=== PATIENT | female | born 1985 | race Hispanic/Latino ===

== ENCOUNTER 2017-10-22 16:55 | Emergency (ER) | payer MEDICAID ==
[2017-10-22] MEDS ORDERED: diphenhydrAMINE 50 MG/ML VIAL ONE (17:35)
[2017-10-22] MEDS ORDERED: Metoclopramide HCl 10 MG/2 ML VIAL ONE (17:35)
[2017-10-22 17:47] LABS: #Eosinphils 0.1 thou/uL (0.0-0.7); #Lymphocytes 1.6 thou/uL (1.20-3.40); #Monocytes 0.4 thou/uL (0.11-0.59); #Neutrophils 4.7 thou/uL (1.40-6.50); %Basophils 0.5 % (0.0-1.0); %Eosinophils 1.3 % (0.0-10.0); %Lymphocytes 23.7 % (21.0-51.0); %Monocytes 5.9 % (0.0-10.0); %Neutrophils 68.5 % (42.0-75.0); Mean Corpuscular HGB CONC 34.2 g/dL (32.0-36.0); Mean Corpuscular Hemoglobin 31.2 pg (27.0-31.0); Mean Corpuscular Volume 91.1 fl (81.0-99.0); Mean Platelet Volume 9.4 fL (7.4-10.4); Platelet Count 121 thou/uL (130-400); RBC Distribution Width 12.1 % (11.5-14.5); Red Blood Cell (RBC) Count 4.15 mill/uL (4.20-5.40); White Blood Cell (WBC) Count 6.9 thou/uL (4.8-10.8)
[2017-10-22 18:11] LABS: ALT (SGPT) 12 U/L (8-55); AST (SGOT) 15 U/L (5-34); Albumin 3.7 g/dL (3.5-5.0); Alkaline Phosphatase 58 U/L (40-150); Anion Gap 12 mmol/L (10-20); BUN (Urea Nitrogen) 6 mg/dL (7.0-18.7); Bilirubin, Total 0.4 mg/dL (0.2-1.2); Calc. Creatinine Clearance 0 mL/min (70-130); Calcium 8.9 mg/dL (7.8-10.44); Carbon Dioxide 21 mmol/L (22-29); Chloride 107 mmol/L (98-107); Estimated GFR-MDRD Greater than 90; Globulin 2.6 g/dL (2.4-3.5); Glucose 77 mg/dL (70-105); Potassium 3.9 mmol/L (3.5-5.1); Protein, Total 6.3 g/dL (6.0-8.3); Sodium 136 mmol/L (136-145)
[2017-10-22 18:23] LABS: Bilirubin Negative (Negative); Blood, Urine Negative (Negative); Clarity CLOUDY (Clear); Glucose, Urine (Dipstick) Negative (Negative); Leukocyte Large (Negative); Nitrite Negative (Negative); Protein, Urine (Dipstick) Negative (Neg-Trace); Specific Gravity, Urine 1.014 (1.002-1.036)
[2017-10-22 18:29] LABS: Bacteria/HPF Rare-Few HPF (None Seen); Hyaline Casts/LPF 0-3 HYALINE CAST LPF (0-3 Hyaline); Pathc Cast-AUWi Flag 0.29 (0-2.49); WBC/HPF 21-50 HPF (0-3)
--- NOTE | 2017-10-22 18:48 | ULT ---
OB ULTRASOUND: 10/22/17 HISTORY: Abdominal and pelvic pain. A viable single intrauterine identified. Gestational age by ultrasound is 13 weeks, 4 days . Biometry measurements are consistent. heart rate: 155. Placenta: Anterior. Amniotic fluid: Within normal range. Cord insertion: Identified. Intracranial contents appear unremarkable for this age of gestation. Maternal ovaries identified and appear unremarkable. No abnormality identified. IMPRESSION: 13 week, 4 day gestation by ultrasound. No abnormality identified. POS: [facility]
== END 2017-10-22 19:03 | disposition home or self-care (01) ==
LOC: ERS 16:55
DX: O23.41 Unspecified infection of urinary tract in pregnancy, first trimester (principal); Z3A.12 12 weeks gestation of pregnancy
CPT/HCPCS: 36415; 76815; 80053; 81003; 81015; 85025; 86850; 86900; 86901; 87086; 96361; 96374; 96375; J1200; J2765

== ENCOUNTER 2017-12-25 18:22 | Inpatient (IN) | payer MEDICAID, OTHER, SELFPAY ==
[2017-12-25] MEDS ORDERED: Lactated Ringer's 1,000 ML IV SCH (19:15)
[2017-12-25 19:17] VITALS: BMI 22.6
[2017-12-25 19:25] LABS: Bilirubin Negative (Negative); Blood, Urine Negative (Negative); Clarity CLEAR (Clear); Glucose, Urine (Dipstick) Negative (Negative); Leukocyte Negative (Negative); Nitrite Negative (Negative); Protein, Urine (Dipstick) Negative (Neg-Trace); Specific Gravity, Urine 1.007 (1.002-1.036); pH, Urine 8.5 (5.0-9.0)
--- NOTE | 2017-12-25 19:42 | HP ---
DATE OF ADMISSION: 12/25/2017 TIME OF EVALUATION: 1852 hours to 1905 hours. LOCATION: Labor and Delivery. This is a patient of Dr. Oliveira. REASON FOR EVALUATION: A 23 weeks and 0 days with acute pelvic pain. HISTORY OF PRESENT ILLNESS: In brief, this is a 32-year-old female 3, para 2 with n o history of labor or cervical incompetence who presents at 23 weeks and 0 days based on a du e date that she gives on 04/23/2018. The patient has a history of 2 prior vaginal births at term. S he denies recent trauma or recent intercourse. She denies any vaginal bleeding or leakage of fluid. She states that a few hours ago she started to have acute pelvic pain located over the bladder. She states that this is kind of a pressure and dull pain. She denies headaches, GI or symptoms. REVIEW OF SYSTEMS: Complete review of systems was completed and is otherwise negative unless specifi ed in the HPI. PAST MEDICAL HISTORY: Negative. PAST SURGICAL HISTORY: None. ALLERGIES: None. OB HISTORY: Significant for 2 prior vaginal births. PHYSICAL EXAMINATION: VITAL SIGNS: Temperature is 98.8, blood pressure is 92/60, pulse is 82, respirations are 24. Grossl y, she looks uncomfortable, but is in no acute distress. ABDOMEN: Soft and uterine fundus is nontender. it appears size compatible with dates. I performed a vaginal examination and I did not find any vaginal bleeding or evidence of leakage of membranes. I performed a digital cervical examination and this was later confirmed by the patient's RN immediatel y following, and found the cervix to be fingertip/75% effaced/about 0 station. I do not suspect rupt ured membranes. On monitoring, heart tones are in the 160s to 170s without significant decelerations. Th ere are no contractions on tocodynamometer. ASSESSMENT: This is a at 23 weeks and 0 days with acute pelvic pain with no evidence of advanc ed cervical dilation or ruptured membranes. Clinically, she has no risk factors for abruption and I do not suspect an abruption is occurring. PLAN: 1. I have ordered a stat cath urine for analysis. 2. I have ordered a CMP and a CBC. 3. I have ordered a stat obstetrical ultrasound for gestational weight and to check the cervical praneeth gth. 4. I did not order an SFN as she is under 24 weeks. 5. Source of pelvic pain is unclear at this time, but we are beginning the investigation.
[2017-12-25 19:54] LABS: #Monocytes 0.8 thou/uL (0.11-0.59); #Neutrophils 6.7 thou/uL (1.40-6.50); %Basophils 0.1 % (0.0-1.0); %Eosinophils 0.5 % (0.0-10.0); %Lymphocytes 20.6 % (21.0-51.0); %Monocytes 8.3 % (0.0-10.0); %Neutrophils 70.6 % (42.0-75.0); Hemoglobin 10.3 g/dL (12.0-16.0); Mean Corpuscular HGB CONC 36.4 g/dL (32.0-36.0); Mean Corpuscular Hemoglobin 33.4 pg (27.0-31.0); Mean Corpuscular Volume 91.8 fL (78.0-98.0); Mean Platelet Volume 7.6 fL (7.4-10.4); Platelet Count 163 thou/uL (130-400); RBC Distribution Width 12.4 % (11.5-14.5); Red Blood Cell (RBC) Count 3.08 mill/uL (4.20-5.40); White Blood Cell (WBC) Count 9.5 thou/uL (4.8-10.8)
[2017-12-25 20:14] LABS: ALT (SGPT) 19 U/L (8-55); AST (SGOT) 14 U/L (5-34); Alkaline Phosphatase 91 U/L (40-150); Anion Gap 11 mmol/L (10-20); BUN (Urea Nitrogen) 6 mg/dL (7.0-18.7); Bilirubin, Total 0.6 mg/dL (0.2-1.2); Calc. Creatinine Clearance 125 mL/min (70-130); Calcium 8.2 mg/dL (7.8-10.44); Carbon Dioxide 19 mmol/L (22-29); Chloride 105 mmol/L (98-107); Estimated GFR-MDRD Greater than 90; Globulin 2.6 g/dL (2.4-3.5); Glucose 89 mg/dL (70-105); Potassium 3.6 mmol/L (3.5-5.1); Protein, Total 5.6 g/dL (6.0-8.3); Sodium 131 mmol/L (136-145)
[2017-12-25] MEDS ORDERED: Acetaminophen 500 MG TAB PO PRN (20:47)
--- NOTE | 2017-12-25 20:53 | PDOC.EVN ---
Event Note - Event Note Event Note: Follow up: I was present for bedside sono by tech...s=d, looks like a posterior marginal previa. Good HR. No cervical shortening on sono with CX arounf 3cm in length. Temp now 101.5. Unsure etiology. I have ordered blood and urine cultures for now. We will kwwp in L&D for now. This might be early Intra-amniotic infection...unsure etiology. As cervical length is normal and as less than 24 weeks...I will hold off on steroids for now. Report given to Tee, who she sees in clinic..she has requested we manage the care for now.
[2017-12-25] MEDS: Lactated Ringer's 1,000 ML IV SCH (21:00)
--- NOTE | 2017-12-25 21:01 | ULT ---
OB ULTRASOUND: 12/25/17 COMPARISON: 10/22/17. INDICATION: Low abdominal pain. FINDINGS: there is a live intrauterine gestation which by ultrasound imaging corresponds to a 22 week, 1 day ge station. Amniotic fluid volume is subjectively normal. cardiac activity documented at 171 beats per minute. The fetus in a breech lie. Placenta is located posteriorly and is low lying although beard s not cover a portion of the internal os compatible with a marginal previa. SHARON is documented at 14.3 cm. Estimated weight is 513 grams. Stated clinical gestational age is 23 weeks, 0 days. Cervic al length is documented at 3.4 cm. IMPRESSION: Live intrauterine gestation as discussed above. Evidence of marginal previa. Recommend continued imaging followup. Cervical length of 3.4 cm. Findings made available to the patient's career technical counselor, Edinson Loyd, at the time of the exam. Code CR POS: [facility]
--- NOTE | 2017-12-25 21:08 | PDOC.EVN ---
Event Note - Event Note Event Note: Per Pharmacy, no eryhtro IV..change to Zmax 500mg IV QD
[2017-12-25] MEDS ORDERED: Azithromycin 500 MG in Sodium Chloride 0.9% 250 ML 250 ML IVPB SCH (21:30)
[2017-12-25] MEDS: Ampicillin 1 GM in Sodium Chloride 0.9% 100 ML IVPB SCH (22:03)
--- NOTE | 2017-12-25 22:55 | PDOC.EVN ---
Event Note - Event Note Event Note: Patient still with some pelvic discomfort...unsure etiology. We will keep in L& D overnight. Still no VB or ROM
[2017-12-25] MEDS ORDERED: Erythromycin 500 MG in Sodium Chloride 0.9% 250 ML 250 ML IVPB SCH (23:59)
[2017-12-26] MEDS: Ampicillin 1 GM in Sodium Chloride 0.9% 100 ML IVPB SCH ×3 (05:03→17:48)
[2017-12-26] MEDS ORDERED: Butorphanol Tartrate 1 MG/ML VIAL SLOW IVP PRN (05:07)
[2017-12-26] MEDS ORDERED: Promethazine HCl 25 MG/ML VIAL IM/IV PRN (05:07)
--- NOTE | 2017-12-26 05:10 | PDOC.EVN ---
Event Note - Event Note Event Note: @0505: in L&D, patient states continued lower pelvic pressure, no VB, no LOF. I will recheck cervical length sono for any cervical changes. Sono ordered stat.
[2017-12-26] MEDS ORDERED: Butorphanol Tartrate 1 MG/ML VIAL SLOW IVP SCH (05:30)
--- NOTE | 2017-12-26 05:40 | PDOC.EVN ---
Event Note - Event Note Event Note: Repeat sono for cervical length by verbal rport ranges from 2.5 to 3.2 based on angle used. Final read pending. Although still generally normal, I have ordered celestone to begin.
[2017-12-26] MEDS: Lactated Ringer's 1,000 ML IV SCH ×3 (06:26→21:03)
[2017-12-26] MEDS: Betamet Acet/Betamet Na Ph 30 MG/5 ML VIAL IM SCH (07:01)
--- NOTE | 2017-12-26 07:22 | PDOC.EVN ---
Event Note - Event Note Event Note: @0715: L&D Update: Maternal Transfer Request Due to increased pelvic pressure, I rechecked her cervix: CX is /0...as now 1cm and uncomfortable, I have initiated maternal transfer request due to EGA of 23 weeks 1 day. I ordered Indocin 100mg WI X 1 mow. I had not initiated transport (earlier) as I was not yet sure that IAI was the sure diagnosis; I am now sure IAI is the etiology.
[2017-12-26] MEDS ORDERED: Indomethacin 50 MG SUPP PR SCH (07:30)
[2017-12-26] MEDS ORDERED: Bicitra 30 ML UDCUP ONE (07:48)
[2017-12-26] MEDS ORDERED: CEFAZOLIN/Water 2 GM/20 ML SYRINGE ONE (07:48)
[2017-12-26] MEDS ORDERED: Midazolam HCl 2 mg/2 ml Vial ONE (08:09)
[2017-12-26] MEDS ORDERED: Fentanyl 250 MCG/5 ML VIAL ONE (08:09)
[2017-12-26] MEDS ORDERED: Carboprost 250 MCG/ML AMP ONE (08:11)
--- NOTE | 2017-12-26 08:12 | PRG ---
DATE OF SERVICE: 12/26/2017 TIME: 0755 LOCATION: Labor and Delivery PREOPERATIVE NOTE Preop Diagnosis: Chorio, 23 week 1 day EGA, Breech, labor at 3cm In brief at approximately 7:45 this morning while I was on phone with the transfer center requesting maternal transport for resuscitative anticipated needs, I was told the patient had a prolonged deceleration in the low 100s for about 3-4 minutes, I evaluated the patient at bedside and performed a vaginal examination. I did not find any gross evidence of bleeding , but she was now dilated to 3 cm with a bag of water, forebag which was intact. As she is now having progressive cervical dilation (3 cm) I have elected to proceed with a primary urgent section as the baby is breech. Dr. Cottrell and myself at bedside in LDR 6 briefly discussed with her the limits of viability and the potential long-term complications of a 23-week . Complications can include cerebral injury, hearing and vision difficulty, and inability to ventilate the lungs at 23 weeks. In short, due to progressive dilation and active laboring at 23 weeks and 1 day, we will proceed with an urgent primary section. This will likely be a classical due to the gestational age. One dose of steroids has been given approximately 2 hours ago. Once again, as I previously documented, while I suspected intra- amniotic infection yesterday, I was not completely sure of the diagnosis and I was awaiting further lab tests to confirm. Now the diagnosis is certain that her presenting fever was intra-amniotic infection, we will proceed with a primary classical for 23-weeks and 1 day. Again, limits of viability have been discussed with her and if necessary, if the child is stabilized after delivery, we will plan on transport. NICU here and ready. Anesthesia here. TOÑITOD
[2017-12-26] MEDS ORDERED: Clindamycin/D5W 900 mg/50 ml Premix Bag ONE (08:17)
[2017-12-26 08:30] LABS: Actual Bicarbonate (HCO3a) 19.6 mEq/L (22-28); Analyzer IN Cardio OR; Base Excess (BEa) -6.7 mEq/L (-2.0 to +3.0)
[2017-12-26] MEDS ORDERED: Ondansetron HCl/PF 4 MG/2 ML Vial ONE (08:31)
[2017-12-26] MEDS ORDERED: Oxytocin 10 UNITS/ML VIAL ONE (08:31)
[2017-12-26] MEDS ORDERED: diphenhydrAMINE 25 MG CAP PO PRN (08:49)
[2017-12-26] MEDS ORDERED: diphenhydrAMINE 50 MG/ML VIAL IM PRN (08:49)
[2017-12-26] MEDS ORDERED: Zolpidem Tartrate 5 MG TAB PO PRN (08:49)
[2017-12-26] MEDS ORDERED: Meperidine HCl/PF 25 MG/ML VIAL SLOW IVP PRN (08:49)
[2017-12-26] MEDS ORDERED: Naloxone HCl 0.4 mg/ml Vial IV PRN (08:49)
[2017-12-26] MEDS ORDERED: Promethazine HCl 25 MG/ML VIAL IM PRN (08:49)
[2017-12-26] MEDS ORDERED: diphenhydrAMINE 50 MG/ML VIAL IVP PRN (08:49)
[2017-12-26] MEDS ORDERED: Ondansetron HCl/PF 4 MG/2 ML Vial IVP PRN ×2 (08:49)
[2017-12-26] MEDS ORDERED: HYDROmorphone 2 MG/ML VIAL SLOW IVP PRN (08:49)
[2017-12-26] MEDS ORDERED: fentaNYL Citrate/PF 2,000 MCG in Sodium Chloride 0.9% 60 ML IV PRN (08:49)
[2017-12-26] MEDS ORDERED: Ketorolac Tromethamine 30 MG/ML VIAL IVP SCH (09:00)
[2017-12-26] MEDS ORDERED: Communication Order-Pharmacy FS SCH (09:00)
[2017-12-26 09:02] LABS: Syphilis Antibody Nonreactive (Nonreactive); Syphilis Antibody Index 0.03 S/CO (<1.00 Non-Reactive)
--- NOTE | 2017-12-26 09:02 | OP ---
DATE OF PROCEDURE: 12/26/2017 PREOPERATIVE DIAGNOSES: 1. Twenty-three week gestation and 1 day. 2. Chorioamnionitis. 3. Cervical dilation at 3 cm. 4. Breech presentation. POSTOPERATIVE DIAGNOSES: 1. Twenty-three week gestation and 1 day. 2. Chorioamnionitis. 3. Cervical dilation at 3 cm. 4. Breech presentation. 5. Status post classical section. PROCEDURE PERFORMED: Classical section via Pfannenstiel skin incision. SURGEON: 1. Dr. Loyd (for delivery). 2. Dr. Luke Thayer. WALLPAPER REMOVER STEAM: Dr. Bea Barth ([facility]). ANESTHESIA: General. ANTIBIOTICS: Ampicillin and Zithromax given intrapartum, clindamycin 900 mg ordered intraoperatively . FINDINGS: 1. No intra-abdominal pelvic adhesions. 2. Slightly bloody fluid noted on rupture of membranes. 3. Baby delivered breech without complication. 4. Classical made without complication. Pathology is the placenta, which will be sent for study as well as bacteriological cultures from the placental surface. 5. Umbilical arterial gas was sent with the gas being 7.2 with a base excess of -6 (normal). INDICATION: This is a patient that was being treated for suspected intra-amniotic infection who prog ressed to active cervical dilation to 3 cm, with a breech presentation. After informed consent, she was taken to the OR for an urgent primary classical . TECHNIQUE: The patient was taken to the Labor and Delivery operating room where the abdomen was prep ped and draped in the usual fashion. A Pfannenstiel skin incision was made with a scalpel and Bovie cautery was used to dissect the subcutaneous tissue down to the level of the fascia. Fascia was ente red in a transverse fashion without complication. Rectus muscles were off the fascia both superiorly and inferiorly in the midline without complication. An Jay O ring retractor was placed into the abdomen for retraction after entry into the peritoneal cavity was done bluntly. A classica l uterine incision was made as there was no well-defined lower uterine segment. Amniotic sac was int act and at the time of manual rupture, baby was extruded from the cavity without complication. The c ord was clamped, transected, and the baby was handed to NICU team immediately. Please see the neonat al resuscitation record per Neonatology. After the baby was delivered, the second surgeon, Dr. Dinah valadez assisted Dr. Barth with uterine hysterotomy repair. This was done in 3 layers using #1 Monocryl. The third and final layer was a serosal closure for hemostasis. Once again, I was the delivering maravilla rgeon with Dr. Thayer, next to me with Dr. Barth assisting, after the baby was delivered Dr. Thayer assisted with t he uterine hysterotomy repair as I scrubbed out to witness the resuscitation, which apparent ly was successful. For skin closure, IV fluids and urine output, please turn to the operative dictat ion or the addendum to this dictation by Dr. Barth who actually finished the surgical procedure. Po stoperatively, we will continue the patient on antibiotics for now confirmed metritis. The baby will likely be transferred and I will give this information to the patient's as well.
[2017-12-26 09:03] LABS: HBSAg Index 0.21 S/CO (0-0.99); HIV (1/2) Antibody/Antigen Non-Reactive (NonReactive); HIV 1/2 INDEX 0.08 S/CO (<1.00); Hep B Surf Ag Non-Reactive S/CO (NonReactive)
--- NOTE | 2017-12-26 09:13 | ULT ---
ULTRASOUND OBSTETRICAL LIMITED: Date: 12-26-17 Time: 5:24 a.m. History: 32-year-old female in second trimester with pelvic pain. Technique: Only three images are submitted, all sagittal images of the maternal cervix. FINDINGS: The cervix is closed and measures 3 cm in length. IMPRESSION: The cervix is not effaced. POS: [facility]
[2017-12-26] MEDS ORDERED: Adacel (T-DAP) 0.5 ML VIAL IM ONE (09:26)
[2017-12-26] MEDS ORDERED: HYDROcodone/Acetaminophen 5/325 mg Tablet PO PRN (09:26)
--- NOTE | 2017-12-26 09:34 | PDOC.EVN ---
Event Note - Event Note Event Note: Arrived at shift change to assist Drs. Loyd and Tab with classical C/S at 23 + weeks for distress, labor, and chorioamnionitis. Dr. Barth to dictate. To floor on triple antibiotic coverage.
[2017-12-26] MEDS ORDERED: Gentamicin Sulfate 120 MG in Premix Bag 1 BAG IVPB SCH (10:00)
[2017-12-26] MEDS: Prenatal Vitamin 1 TAB PO SCH (12:44)
[2017-12-26] MEDS: Ibuprofen 800 MG TAB PO SCH ×2 (14:10→21:02)
[2017-12-26] MEDS: Clindamycin/D5W 900 MG in Premix Bag 1 BAG IVPB SCH ×2 (14:15→21:01)
--- NOTE | 2017-12-26 19:31 | PDOC.PP ---
Post Progress Note Post Day #: 0 Subjective: Feeling much improved. She is tolerating PO and her pain is well-controlled. She is inquiring about baby and is in overall hopeful spirits. She has breastpump at the bedside and is working on pumping regularly. PO intake tolerated: yes Flatus: no Ambulation: no Vital Signs (12 hours) Temp Pulse Resp BP Pulse Ox 12/26/17 17:18 98.2 F 69 20 90/53 L 12/26/17 16:00 98.2 F 70 18 12/26/17 15:08 98.2 F 70 18 95 12/26/17 14:00 98.2 F 70 18 95/54 L 95 12/26/17 12:40 97.8 F 67 18 90/51 L 95 Weight Weight 58.06 kg - Physical Examination General: NAD Respiratory: non-labored breathing Abdominal: no distention, appropriately TTP Fundus firm & at: umbilicus Extremities: negative homans (B) Skin: no rash (bandage in place, clean and dry) Neurological: no gross focal deficits Psychiatric: A&Ox3, normal affect Result Diagrams: 12/25/17 19:46 12/25/17 19:46 Additional Labs: Post Labs Blood Type A POSITIVE 12/26/17 08:10 Hep Bs Antigen Non-Reactive S/CO (NonReactive) 12/26/17 08:10 (1) History of classical section Code(s): Z98.891 - HISTORY OF UTERINE SCAR FROM PREVIOUS SURGERY Status: Acute (2) S/P emergency section Code(s): Z98.891 - HISTORY OF UTERINE SCAR FROM PREVIOUS SURGERY Status: Acute - Assessment/Plan 32 yo now P2133 POD #0 from primary classical section via pfannenstiel incision 1. POD #0 - Tolerating PO and pain well-controlled - All questions answered - Discussed implications of classical uterine incision - Encouraged using breast pump - Fentanyl AMMUNITION AND EXPLOSIVES HANDLER at this time for pain control per anesthesia 2. Chorioamnionitis, now - Continue ampicillin, gentamicin and clindamycin - BCx, UCx and placental culture pending - Monitor VS 3. hemorrhage - Asymptomatic and minimal blood loss post-operatively - Will check AM H&H unless symptomatic prior - Continue PNV and iron Continue care and antibiotics <Bea Barth - Last Filed: 12/26/17 19:36> Vital Signs (12 hours) Temp Pulse Resp BP 12/27/17 04:30 98.1 F 84 18 12/27/17 04:00 98.3 F 75 18 89/50 L 12/27/17 00:00 98.1 F 84 18 90/45 L Weight Weight 58.06 kg Result Diagrams: 12/27/17 05:05 12/25/17 19:46 Additional Labs: Post Labs Blood Type A POSITIVE 12/26/17 08:10 Hep Bs Antigen Non-Reactive S/CO (NonReactive) 12/26/17 08:10 <Mason Thayer - Last Filed: 12/27/17 08:37> Attending Addendum - Attending Addendum Date/Time: 12/27/17 0836 I personally evaluated the patient and discussed the management with Dr. Barth. I agree with the History, Examination, Assessment and Plan. <Mason Thayer - Last Filed: 12/27/17 08:37>
[2017-12-26] MEDS: Ferrous Sulfate 325 MG TAB PO SCH (21:03)
--- NOTE | 2017-12-26 23:56 | DN-2 ---
DATE OF PROCEDURE: 12/26/2017 PRIMARY ATTENDING SURGEON: Edinson Loyd M.D. RESIDENT SURGEON: Bea Barth M.D. PACK OPERATOR SURGEON: Luke Thayer M.D. PROCEDURE: Emergent primary classical section via Pfannenstiel skin incision. PREOPERATIVE DIAGNOSES: 1. 23.1 week gestation. 2. Chorioamnionitis. 3. Cervical dilation, 3 cm. 4. Breech presentation. 5. Recurrent late decelerations on heart tracing. POSTOPERATIVE DIAGNOSES: 1. 23.1 week gestation. 2. Chorioamnionitis. 3. Cervical dilation at 3 cm. 4. Breech presentation. 5. Recurrent late decelerations on heart tracing. 6. Status post classical section. 7. hemorrhage. ANESTHESIA: General. INDICATIONS: The patient is a 32-year-old -0-3-2 at 23.1 weeks gestation who presented yesterday with suspected intra-amniotic infection and progressed to 3 cm cervical dilation with breech presentation. After benefits and alternatives were discussed with the patient, she gave informed consent. Preoperative antibiotics included azithromycin, clindamycin and ampicillin. The patient was taken to the operating room, placed in supine position with left tilt, prepped and draped in the usual sterile fashion. General anesthesia was then initiated. A Pfannenstiel incision was made with the scalpel and carried down through the level of the fascia which was nicked with Bovie cautery. Subcutaneous tissue and fascia extended bluntly. The inferior and superior edges of the cut fascial edges were elevated with Reinaldo clamps and underlying rectus muscles were sharply and bluntly dissected free. The recti were divided digitally and retracted manually. The peritoneum was entered bluntly and retracted manually. An Jay O was placed. A classical incision was made as there was no development of the lower uterine segment. The amniotic sac was intact at the time of entry, ruptured when presentation was confirmed and the baby was removed from the cavity without complication. The fluid was noted to have a green/brown tinge. The cord was promptly clamped, cut and the baby was handed to NICU team immediately. A cord gas was collected. Cord blood was collected. The placenta was manually extracted in the Black[place] presentation, found to be intact and sent with the infant for further evaluation. The uterus was elevated out of the abdomen and the endometrium was curetted with a dry lap. The uterus was closed in four layers of #1 Monocryl suture. The initial two layers were in a running locking fashion. The third layer was an imbricating serosal layer. The fourth a single interrupted layer on the serosa for additional hemostasis. The abdomen was irrigated and suctioned free of clots. The uterus was internalized and hysterotomy was again noted to be hemostatic. Seprafilm was applied to the hysterotomy repair. The peritoneum was closed with 0-Chromic suture in a running fashion. The fascia was closed with running non-locking 0-PDS suture. The subcutaneous tissue was irrigated and there were no bleeders. The skin was approximated with 4-0 Monocryl suture, Dermabond and steri strips and pressure dressing was placed. All counts were correct. The patient tolerated the procedure very well and was taken to the recovery room in stable condition. QUANTITATIVE BLOOD LOSS: 1240 mL URINE OUTPUT: 300 mL of light yellow urine. COMPLICATIONS: hemorrhage. SPECIMENS: Cord blood sent to lab for blood type A and cord gas sent showing a pH of 7.28, pCO2 of 42.4, bicarbonate 19.6 and base excess of -6.7 FINDINGS: female infant who weighed 720 grams. Placenta sent with infant for further laboratory evaluation. DRAINS: Rushing to gravity draining clear urine. MTDD
[2017-12-27] MEDS: Ampicillin 1 GM in Sodium Chloride 0.9% 100 ML IVPB SCH ×4 (00:31→18:29)
[2017-12-27] MEDS: Clindamycin/D5W 900 MG in Premix Bag 1 BAG IVPB SCH ×3 (05:16→21:25)
[2017-12-27] MEDS: Ibuprofen 800 MG TAB PO SCH ×3 (05:16→21:25)
[2017-12-27 05:33] LABS: Hemoglobin 8.6 g/dL (12.0-16.0); Mean Corpuscular HGB CONC 34.5 g/dL (32.0-36.0); Mean Corpuscular Hemoglobin 32.2 pg (27.0-31.0); Mean Corpuscular Volume 93.5 fL (78.0-98.0); Mean Platelet Volume 7.8 fL (7.4-10.4); Platelet Count 148 thou/uL (130-400); RBC Distribution Width 12.7 % (11.5-14.5); Red Blood Cell (RBC) Count 2.68 mill/uL (4.20-5.40)
--- NOTE | 2017-12-27 07:01 | PDOC.PP ---
Post Progress Note Post Day #: 1 Subjective: Feeling well this morning. She is tolerating PO and her pain is well- controlled. Rushing was removed this morning and she felt ok getting up. PO intake tolerated: yes Flatus: no Ambulation: yes Vital Signs (12 hours) Temp Pulse Resp BP 12/27/17 00:00 98.1 F 84 18 90/45 L 12/26/17 20:00 98.1 F 84 18 91/47 L Weight Weight 58.06 kg - Physical Examination General: NAD Cardiovascular: no m/r/g, RRR Respiratory: clear to auscultation bilaterally, non-labored breathing Abdominal: + bowel sounds, no distention, appropriately TTP Fundus firm & at: below umbilicus Extremities: negative homans (B) Skin: CS incision dry & intact, no rash Neurological: no gross focal deficits Psychiatric: A&Ox3, normal affect Result Diagrams: 12/27/17 05:05 12/25/17 19:46 Additional Labs: Post Labs Blood Type A POSITIVE 12/26/17 08:10 Hep Bs Antigen Non-Reactive S/CO (NonReactive) 12/26/17 08:10 (1) History of classical section Code(s): Z98.891 - HISTORY OF UTERINE SCAR FROM PREVIOUS SURGERY Status: Acute (2) S/P emergency section Code(s): Z98.891 - HISTORY OF UTERINE SCAR FROM PREVIOUS SURGERY Status: Acute - Assessment/Plan 32 yo now P2133 POD #1 from primary classical section via Pfannenstiel incision for chorioamnionitis, non-reassuring status and breech presentation 1. POD #1 - Tolerating PO and pain well-controlled - All questions answered - Discussed implications of classical uterine incision - Encouraged using breast pump - Fentanyl HUMAN RESOURCES DISTRICT MANAGER at this time for pain control per anesthesia - H&H stable but will start iron and continue PNV 2. Sepsis 2/2 Chorioamnionitis, now - Continue ampicillin, gentamicin and clindamycin - BCx, UCx and placental culture pending - Monitor VS - Will plan to repeat BCx pending results and d/c antibiotics if remains afebrile - Last fever 101.5 on 12/25/16 at 20:00 3. hemorrhage - Asymptomatic and minimal blood loss post-operatively - Continue PNV and iron Continue care and antibiotics
--- NOTE | 2017-12-27 08:13 | PDOC.PP ---
Post Progress Note Post Day #: 1 Subjective: see note Vital Signs (12 hours) Temp Pulse Resp BP 12/27/17 04:30 98.1 F 84 18 12/27/17 04:00 98.3 F 75 18 89/50 L 12/27/17 00:00 98.1 F 84 18 90/45 L Weight Weight 128 lb Result Diagrams: 12/27/17 05:05 12/25/17 19:46 Additional Labs: Post Labs Blood Type A POSITIVE 12/26/17 08:10 Hep Bs Antigen Non-Reactive S/CO (NonReactive) 12/26/17 08:10 - Assessment/Plan POD1 sp stat classical CS @ 23 weeks for PTL and presumed IAI. Pt on IV Amp/ Gent/Clinda. Blood cs resulted gram positive rods, should be well covered with abx choice. Discussed with pt need to continue abx x 48 hours afebrile. She is doing well, minimal pain, tolerating her diet and reports no bleeding. She is in good spirits and has talked with team at [facility] in [place] about baby who is there. Agree with exam findings and A/P Dr. Barth.
[2017-12-27] MEDS: Ferrous Sulfate 325 MG TAB PO SCH ×2 (08:44→21:25)
[2017-12-27] MEDS: Betamet Acet/Betamet Na Ph 30 MG/5 ML VIAL IM SCH (08:44)
[2017-12-27] MEDS: Prenatal Vitamin 1 TAB PO SCH (08:44)
[2017-12-27] MEDS: Lactated Ringer's 1,000 ML IV SCH ×2 (08:45→18:32)
[2017-12-27] MEDS: HYDROcodone/Acetaminophen 5/325 mg Tablet PO PRN (13:07)
[2017-12-27] MEDS: Simethicone Chewable 80 MG TAB PO PRN ×2 (13:09→21:25)
[2017-12-28] MEDS: Ampicillin 1 GM in Sodium Chloride 0.9% 100 ML IVPB SCH ×5 (00:03→23:05)
--- NOTE | 2017-12-28 00:39 | PDOC.EVN ---
Event Note - Event Note Event Note: POD#2 Resting comfortably. No c/o. VSS AF since delivery. Abdomen soft, NT. BC show Listeria species and another gram + elton. Will continue present IV ABX until specific organisms identified. Advance diet.
[2017-12-28] MEDS: Clindamycin/D5W 900 MG in Premix Bag 1 BAG IVPB SCH ×3 (05:11→21:52)
[2017-12-28] MEDS: Lactated Ringer's 1,000 ML IV SCH ×4 (05:11→22:51)
--- NOTE | 2017-12-28 07:36 | PDOC.PP ---
Post Progress Note Post Day #: 2 Subjective: Feeling very well this morning. Pain well-controlled. Baby is stable and receiving blood transfusion today, per mom. PO intake tolerated: yes Flatus: yes Ambulation: yes Vital Signs (12 hours) Temp Pulse Resp BP 12/28/17 04:00 97.5 F L 60 16 90/48 L 12/28/17 00:00 97.8 F 61 16 90/42 L 12/27/17 20:00 97.6 F 71 16 85/46 L Weight Weight 58.06 kg - Physical Examination General: NAD Cardiovascular: no m/r/g, RRR Respiratory: clear to auscultation bilaterally Abdominal: + bowel sounds, appropriately TTP Fundus firm & at: below umbilicus Extremities: negative homans (B) Skin: CS incision dry & intact, no rash Neurological: no gross focal deficits Psychiatric: A&Ox3, normal affect Result Diagrams: 12/27/17 05:05 12/25/17 19:46 Additional Labs: Post Labs Blood Type A POSITIVE 12/26/17 08:10 Hep Bs Antigen Non-Reactive S/CO (NonReactive) 12/26/17 08:10 (1) History of classical section Code(s): Z98.891 - HISTORY OF UTERINE SCAR FROM PREVIOUS SURGERY Status: Acute (2) S/P emergency section Code(s): Z98.891 - HISTORY OF UTERINE SCAR FROM PREVIOUS SURGERY Status: Acute - Assessment/Plan 32 yo now P2133 POD #2 from primary classical section via Pfannenstiel incision for chorioamnionitis, non-reassuring status and breech presentation 1. POD #2 - Tolerating PO and pain well-controlled - All questions answered - New breast pump delivered from [facility] - PO pain control with motrin and norco - H&H stable but will continue iron and PNV 2. Sepsis 2/2 Chorioamnionitis, now - Continue ampicillin, gentamicin and clindamycin - BCx, UCx and placental culture pending - Listeria in 1, and gram pos elton 2/2 in initial culture, sensitivities pending - Monitor VS - Repeat BCx pending - Last fever 101.5 on 12/25/16 at 20:00 - Continue abx until at least 72h afebrile 3. hemorrhage - Asymptomatic and minimal blood loss post-operatively - Continue PNV and iron Continue care and antibiotics <Bea Barth - Last Filed: 12/28/17 08:14> Vital Signs (12 hours) Temp 12/28/17 23:50 97.7 F Weight Weight 58.06 kg Result Diagrams: 12/27/17 05:05 12/25/17 19:46 Additional Labs: Post Labs Blood Type A POSITIVE 12/26/17 08:10 Hep Bs Antigen Non-Reactive S/CO (NonReactive) 12/26/17 08:10 <Mason Thayer - Last Filed: 12/29/17 08:37> Attending Addendum - Attending Addendum Date/Time: 12/29/17 0836 I personally evaluated the patient and discussed the management with Dr. Barth. I agree with the Assessment and Plan. <Mason Thayer - Last Filed: 12/29/17 08:37>
[2017-12-28] MEDS: Prenatal Vitamin 1 TAB PO SCH (08:16)
[2017-12-28] MEDS: Ferrous Sulfate 325 MG TAB PO SCH ×2 (08:16→21:53)
[2017-12-28] MEDS: Ibuprofen 800 MG TAB PO SCH ×3 (08:16→21:53)
--- NOTE | 2017-12-28 09:58 | PDOC.EVN ---
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 Awaiting final sensitivities. Continuing antibiotics until at least 72 hours afebrile (at least 8 pm tonight) and will also follow repeat blood cultures.
[2017-12-28] MEDS: HYDROcodone/Acetaminophen 5/325 mg Tablet PO PRN (13:45)
[2017-12-28] MEDS: Simethicone Chewable 80 MG TAB PO PRN (21:53)
[2017-12-28] MEDS ORDERED: Acetaminophen/Codeine 30-300mg Tablet PO PRN ×2 (22:53)
[2017-12-28 23:50] VITALS: TEMP 97.7
--- NOTE | 2017-12-29 00:53 | PDOC.PP ---
Post Progress Note Post Day #: 3 Subjective: Doing well, would like to go see baby in [place]. Baby had blood transfusion yesterday on the and she states baby is doing well so far. PO intake tolerated: yes Flatus: yes Ambulation: yes Vital Signs (12 hours) Temp Pulse Resp BP BP 12/28/17 23:50 97.7 F 12/28/17 20:00 98.1 F 69 16 101/53 L 12/28/17 16:52 97.6 F 76 20 103/54 L Weight Weight 128 lb - Physical Examination General: NAD Cardiovascular: no m/r/g Respiratory: clear to auscultation bilaterally Abdominal: + bowel sounds, lochia, no distention, appropriately TTP Extremities: negative homans (B) Skin: CS incision dry & intact (sutured closed) Neurological: no gross focal deficits Psychiatric: A&Ox3, normal affect Result Diagrams: 12/27/17 05:05 12/25/17 19:46 Additional Labs: Post Labs Blood Type A POSITIVE 12/26/17 08:10 Hep Bs Antigen Non-Reactive S/CO (NonReactive) 12/26/17 08:10 (1) Bacteremia Code(s): R78.81 - BACTEREMIA Status: Acute (2) History of classical section Code(s): Z98.891 - HISTORY OF UTERINE SCAR FROM PREVIOUS SURGERY Status: Acute - Assessment/Plan POD Day 3 today on 12/29/17. I discussed with her in detail Listeria and the course of events. I also reviewed with her the classical CS and implications for future pregnancies. Although she would like to go home today, I advised that we get a preliminary result from the repeat blood cultures (no growth so far). Clinically, she is well, and has had no fever since delivery on triples. Amp is being given which is first choice for listeria. We may have discharge later today if culture remains no growth to date. I will do a preliminary dsch set at 1500 today.
--- NOTE | 2017-12-29 01:14 | DIS ---
TIME: 12:54. LOCATION: in room #333. DATE OF ADMISSION: 12/25/2017 DATE OF PROJECTED DISCHARGE: 12/29/2017 in the afternoon. PRINCIPAL PROCEDURE: Primary classical . OTHER DIAGNOSES: 1. Listeria monocytogenes bacteremia. 2. Chorioamnionitis. 3. labor at 23 weeks. 4. Breech presentation. 5. Posterior placenta previa. HOSPITAL COURSE: In brief, this patient was admitted, by me, on 12/25/2017 as a patient at 23 weeks gestation with abdominal pain and fever of unknown etiology. In labor and delivery, her temperature was over 101 without a clear source. Urinalysis was negative. As we considered the possibility of i ntra-amniotic infection, I attempted to rule out other sources by awaiting blood culture and a urine culture to make sure we were not committing to a 23-week delivery. Empirically, I started the patien t on ampicillin and erythromycin in case this was intra-amniotic infection, although she was not rupt ured. Ultrasound confirmed that she was size equal to dates, normal SHARON, and a posterior placenta pr evia which was found incidentally. This was a marginal previa. Due to concerns of dilation, I did c heck the patient digitally and she was closed. Throughout the night, patient continued to have pain and her cervical length on repeat assessment was still greater than 2.5 and was normal. Nonetheless, shortly after that second cervical length ultrasound, patient started to have bloody show and I chec ked the cervix once again by finger examination and she was now 3 cm dilated and still breech. We pr oceeded with a primary classical . Postoperatively, the patient did well. The baby was tra nsferred to [facility] in [place] due to prematurity. Baby was resuscitated in the op erating room and was transferred in stable condition. The patient's blood culture did grow back list eria monocytogenes and the patient remained afebrile since delivery. I saw the patient on 12/29/2017 , close to 1 a.m. and the patient voiced her desire to go home. I advised her that we are waiting fo r a second repeat blood culture to show negative growth, but as she is clinically well, with the inci amina clean, dry, and intact, and no fever since delivery, I have preliminarily approved discharge set for 1500 on 12/29/2017. She will follow up with Dr. Oliveira in 1 week. We may amend this plan if the blood culture continued to show evidence of infection, although there has been no growth to date as of 12:50 this morning when the lab was checked by me.
[2017-12-29] MEDS: Lactated Ringer's 1,000 ML IV SCH ×2 (02:58→13:13)
[2017-12-29] MEDS: Ibuprofen 800 MG TAB PO SCH ×2 (05:02→14:04)
[2017-12-29] MEDS: Clindamycin/D5W 900 MG in Premix Bag 1 BAG IVPB SCH ×2 (05:02→14:04)
[2017-12-29] MEDS: Ampicillin 1 GM in Sodium Chloride 0.9% 100 ML IVPB SCH ×2 (06:09→11:52)
--- NOTE | 2017-12-29 07:54 | PDOC.PP ---
Post Progress Note Post Day #: 3 Subjective: Doing well. She is ready to be discharged today and has no concerns about going home. She would like to see infant as soon as possible. PO intake tolerated: yes Flatus: yes Ambulation: yes Vital Signs (12 hours) Temp Pulse Resp BP 12/28/17 23:50 97.7 F 12/28/17 20:00 98.1 F 69 16 101/53 L Weight Weight 58.06 kg - Physical Examination General: NAD Cardiovascular: no m/r/g, RRR Respiratory: clear to auscultation bilaterally, non-labored breathing Abdominal: + bowel sounds, lochia, no distention, appropriately TTP Fundus firm & at: below umbilicus Extremities: negative homans (B) Skin: CS incision dry & intact, no rash Neurological: no gross focal deficits Psychiatric: A&Ox3, normal affect Result Diagrams: 12/27/17 05:05 12/25/17 19:46 Additional Labs: Post Labs Blood Type A POSITIVE 12/26/17 08:10 Hep Bs Antigen Non-Reactive S/CO (NonReactive) 12/26/17 08:10 (1) History of classical section Code(s): Z98.891 - HISTORY OF UTERINE SCAR FROM PREVIOUS SURGERY Status: Acute (2) S/P emergency section Code(s): Z98.891 - HISTORY OF UTERINE SCAR FROM PREVIOUS SURGERY Status: Acute - Assessment/Plan 32 yo now [id number] POD #3 from primary classical section via Pfannenstiel incision for chorioamnionitis, non-reassuring status and breech presentation 1. POD #3 - Tolerating PO and pain well-controlled - All questions answered - Using breast pump regularly - PO pain control with motrin, she does not desire any Tylenol #3 on discharge - H&H stable but will continue iron and PNV 2. Sepsis 2/2 Chorioamnionitis, now - Continue ampicillin, gentamicin and clindamycin - Initial BCx grew listeria monocytogenes (2/2), repeat pending with no growth to date - Monitor VS - Last fever 101.5 on 12/25/16 at 20:00 - Once preliminary BCx results at 48 hours, can discharge if negative 3. hemorrhage - Asymptomatic and minimal blood loss post-operatively - Continue PNV and iron Continue care and antibiotics
[2017-12-29] MEDS: Ferrous Sulfate 325 MG TAB PO SCH (08:31)
[2017-12-29] MEDS: Prenatal Vitamin 1 TAB PO SCH (08:32)
[2017-12-29 09:00] VITALS: BP 96/54
== END 2017-12-29 16:23 | disposition home or self-care (01) | DRG 765 ==
LOC: L&D/OP 18:22 → L&D 22:09 → 3SW 12-26 12:34
PROVIDERS: ADMIT Obstetrics & Gynecology; ATTEND Obstetrics & Gynecology
PROC: 10D00Z0 Extraction of Products of Conception, High, Open Approach (ICD-10-PCS; principal; 2017-12-26)
DX: O60.13X0 Preterm labor second trimester with preterm delivery third trimester, not applicable or unspecified (principal); O41.1220 Chorioamnionitis, second trimester, not applicable or unspecified; O72.1 Other immediate postpartum hemorrhage; R78.81 Bacteremia; O32.1XX0 Maternal care for breech presentation, not applicable or unspecified; O76 Abnormality in fetal heart rate and rhythm complicating labor and delivery; Z3A.23 23 weeks gestation of pregnancy; Z37.0 Single live birth; B96.89 Other specified bacterial agents as the cause of diseases classified elsewhere
CPT/HCPCS: 36415; 51701; 51702; 76805; 76815; 80053; 81003; 82805; 85025; 85027; 86780; 86850; 86900; 86901; 87040; 87070; 87077; 87086; 87149; 87205; 87340; 87389; 99285; A4216; J0290; J0456; J0595; J0702; J1580; J2250; J2405; J2550; J2590; J3010; J3490; J7050

== ENCOUNTER 2019-01-22 18:10 | Emergency (ER) | payer MEDICAID, SELFPAY ==
[2019-01-22] MEDS ORDERED: Metoclopramide HCl 10 MG/2 ML VIAL ONE (19:00)
[2019-01-22] MEDS ORDERED: diphenhydrAMINE 50 MG/ML VIAL ONE (19:00)
== END 2019-01-22 20:22 | disposition home or self-care (01) ==
LOC: ERS 18:10
DX: O99.351 Diseases of the nervous system complicating pregnancy, first trimester (principal); G43.909 Migraine, unspecified, not intractable, without status migrainosus; Z3A.08 8 weeks gestation of pregnancy
CPT/HCPCS: 96365; 96375; J1200; J2765

== ENCOUNTER 2019-03-16 14:42 | Inpatient (IN) | payer SELFPAY ==
[2019-03-16 15:37] VITALS: BMI 21.9
[2019-03-16] MEDS ORDERED: Lidocaine 1% (PF) 30 ML VIAL SC PRN (16:34)
[2019-03-16] MEDS ORDERED: hydrALAZINE 20 MG/ML VIAL SLOW IVP PRN (16:34)
[2019-03-16] MEDS ORDERED: Butorphanol Tartrate 1 MG/ML VIAL SLOW IVP PRN (16:34)
[2019-03-16] MEDS ORDERED: NS / Oxytocin 40 units/1000ml 1,000 ML IV PRN (16:34)
[2019-03-16] MEDS ORDERED: Ondansetron PF 4 MG/2 ML Vial IVP PRN (16:34)
[2019-03-16] MEDS ORDERED: Promethazine HCl 25 MG/ML VIAL IM PRN (16:34)
[2019-03-16] MEDS ORDERED: HYDROcodone/Acetaminophen 5/325 mg Tablet PO PRN (16:42)
[2019-03-16] MEDS ORDERED: Diphenoxylate HCl/Atropine Tablet PO PRN (16:42)
[2019-03-16] MEDS ORDERED: Misoprostol 200 MCG TAB PR PRN (16:42)
[2019-03-16] MEDS ORDERED: Ibuprofen 800 MG TAB PO PRN (16:42)
[2019-03-16] MEDS ORDERED: Methylergonovine 0.2 MG/ML VIAL IM PRN (16:42)
[2019-03-16] MEDS ORDERED: Carboprost 250 MCG/ML AMP IM PRN (16:42)
--- NOTE | 2019-03-16 17:52 | ULT ---
EXAM: OB ultrasound COMPARISON: None HISTORY: demise at 15 weeks at outside doctor's office. TECHNIQUE: Multiplanar grayscale and color Doppler images were obtained in a limited transabdominal f etal ultrasound. FINDINGS: There is an intrauterine containing a pole. No heart rate is able to be detected. IMPRESSION: demise
[2019-03-16] MEDS: Lactated Ringer's 1,000 ML IV SCH (18:21)
[2019-03-16] MEDS: Misoprostol 200 MCG TAB PO SCH ×2 (18:38→21:50)
[2019-03-16 18:51] LABS: Hemoglobin 13.7 g/dL (12.0-16.0); Mean Corpuscular HGB CONC 34.4 g/dL (32.0-36.0); Mean Corpuscular Hemoglobin 31.7 pg (27.0-31.0); Mean Corpuscular Volume 92.3 fL (78.0-98.0); Mean Platelet Volume 10.1 fL (7.4-10.4); Platelet Count 128 thou/uL (130-400); RBC Distribution Width 11.8 % (11.5-14.5); Red Blood Cell (RBC) Count 4.33 mill/uL (4.20-5.40); White Blood Cell (WBC) Count 6.7 thou/uL (4.8-10.8)
[2019-03-16 19:49] LABS: HBSAg Index 0.23 S/CO (0-0.99); Hep B Surf Ag Non-Reactive S/CO (NonReactive)
[2019-03-16 19:58] LABS: Syphilis Antibody Nonreactive (Nonreactive); Syphilis Antibody Index 0.04 S/CO (<1.00 Non-Reactive)
[2019-03-17] MEDS: Misoprostol 200 MCG TAB PO SCH ×3 (00:45→06:30)
[2019-03-17] MEDS: Lactated Ringer's 1,000 ML IV SCH ×3 (02:18→09:07)
[2019-03-17] MEDS ORDERED: FLU VACC QS2019-20(6MOS UP)/PF 60 MCG/0.5 ML SYRINGE IM ONE (09:00)
[2019-03-17] MEDS ORDERED: Misoprostol 200 MCG TAB PO SCH (10:15)
[2019-03-17] MEDS ORDERED: D5 LR w/20 mEq KCL 1,000 ML IV SCH (12:30)
[2019-03-17] MEDS ORDERED: [UNRECOGNIZED DRUG - OTHER] VAG SCH (13:00)
[2019-03-17] MEDS ORDERED: Dinoprostone 10 MG Suppository VAG SCH (13:15)
[2019-03-17] MEDS ORDERED: Misoprostol 200 MCG TAB ONE (13:59)
[2019-03-17] MEDS ORDERED: Misoprostol 200 MCG TAB VAG SCH (14:45)
== END 2019-03-18 08:05 | disposition home or self-care (01) | DRG 779 ==
LOC: L&D 14:42
PROVIDERS: ADMIT Family Medicine; ATTEND Family Medicine
DX: O02.1 Missed abortion (principal); Z3A.16 16 weeks gestation of pregnancy
CPT/HCPCS: 36415; 76815; 85027; 86780; 86850; 86870; 86900; 86901; 86922; 87340; 88305; J3480; J7121

== ENCOUNTER 2019-03-21 13:30 | Observation (INO) | payer SELFPAY ==
[~2019-03-21 13:30] MED LIST: Dexamethasone 20 MG/5 ML VIAL ONE; Ketorolac Tromethamine 30 MG/ML VIAL ONE; Lidocaine 1% PF 5 ML VIAL ONE; Ondansetron PF 4 MG/2 ML Vial ONE; PHENYLEPHRINE-NS 100 MCG/ML 10 ML SYRINGE ONE; PROPOFOL 200 MG/20 ML VIAL ONE; Succinylcholine Chloride 20 MG/ML 10 ml SYRINGE FS ONE; ePHEDrine/0.9% NaCl/PF SYRINGE 50 mg/10 ml ONE
[2019-03-21 14:06] LABS: #Lymphocytes 0.5 thou/uL (1.20-3.40); #Monocytes 0.4 thou/uL (0.11-0.59); #Neutrophils 5.8 thou/uL (1.40-6.50); %Basophils 0.1 % (0.0-1.0); %Eosinophils 0.2 % (0.0-10.0); %Monocytes 5.9 % (0.0-10.0); %Neutrophils 86.9 % (42.0-75.0); Hemoglobin 12.9 g/dL (12.0-16.0); Mean Corpuscular HGB CONC 34.3 g/dL (32.0-36.0); Mean Corpuscular Hemoglobin 31.5 pg (27.0-31.0); Mean Platelet Volume 9.3 fL (7.4-10.4); Platelet Count 118 thou/uL (130-400); RBC Distribution Width 11.7 % (11.5-14.5); White Blood Cell (WBC) Count 6.7 thou/uL (4.8-10.8)
[2019-03-21 14:21] LABS: ALT (SGPT) 9 U/L (8-55); AST (SGOT) 13 U/L (5-34); Albumin 3.9 g/dL (3.5-5.0); Alkaline Phosphatase 70 U/L (40-110); Anion Gap 14 mmol/L (10-20); BUN (Urea Nitrogen) 9 mg/dL (7.0-18.7); Bilirubin, Total 0.5 mg/dL (0.2-1.2); Calc. Creatinine Clearance 0 mL/min (70-130); Calcium 9.1 mg/dL (7.8-10.44); Carbon Dioxide 20 mmol/L (22-29); Chloride 106 mmol/L (98-107); Estimated GFR-MDRD Greater than 90; Globulin 2.6 g/dL (2.4-3.5); Glucose 94 mg/dL (70-105); Potassium 3.6 mmol/L (3.5-5.1); Protein, Total 6.5 g/dL (6.0-8.3); Sodium 136 mmol/L (136-145)
[2019-03-21 14:32] LABS: BHCG - Serum POSITIVE (NEGATIVE); Pregs Control Background? CLEAR/WHITE (CLR/WHITE); Pregs Control Bar Appear? YES (CONTROL BAR)
[2019-03-21 15:06] LABS: Bilirubin Negative (Negative); Blood, Urine 3+ (Negative); Clarity Turbid (Clear); Glucose, Urine (Dipstick) Normal (Negative); Leukocyte 500 Leu/uL (Negative); Nitrite Negative (Negative); Protein, Urine (Dipstick) Negative (Neg-Trace); Urobilinogen Normal mg/dL (Less than 2); WBC/HPF 21-50 HPF (0-3)
[2019-03-21 15:23] LABS: Bacteria/HPF Rare-Few HPF (None Seen); Renal Epithelial None Seen HPF (None Seen); Transitional Epithelial 0-3 HPF (None Seen); Yeast-Budding None Seen HPF (None Seen)
[2019-03-21] MEDS ORDERED: Piperacillin/Tazobactam 4.5 GM VIAL ONE (15:29)
[2019-03-21] MEDS ORDERED: Morphine 4 MG/ML VIAL ONE (15:40)
--- NOTE | 2019-03-21 15:41 | ULT ---
Exam: Pelvic ultrasound including Transabdominal, And Vascular Duplex with color and spectral Doppler imag ing: HISTORY: Retained products of conception incomplete miscarriage COMPARISON: None FINDINGS: The uterus is within normal limits of size. Endometrium is heterogeneous and markedly thickened up to 3.6 cm. No pole or yolk sac is seen. Right ovary:3.0 x 1.6 x 1.7 cm Left ovary:3.3 x 2.0 x 2.4 cm No abscess or significant abnormal fluid collection. Vascular duplex examination demonstrates no evidence for ovarian torsion IMPRESSION: Very markedly thickened heterogeneously echogenic endometrium, there may well be some persistent endo metrial blood and nondiscrete retained products or decidual reaction
--- NOTE | 2019-03-21 17:26 | PDOC.FPRHP ---
- History of Present Illness Chief Complaint: abd pain, chills History of Present Illness: 33 y/o who is 5 days s/p cytotec induced due to DIU presents to ED complaining of abdominal pain, chills. She reports her symptoms started yesterday and she has associated N/V. She did not check her temperature, but reports subjective fevers. ED Course: The patient was given 2L NS, zosyn, morphine in the ED - Allergies/Adverse Reactions Allergies Allergy/AdvReac Type Severity Reaction Status Date / Time No Known Allergies Allergy Verified 03/07/13 13:36 - Home Medications Medication Instructions Recorded Confirmed Type PNV With CA,No.71/Iron/FA 1 cap PO DAILY 03/07/13 03/16/19 History [ Vitamin Tablet] Pnv No.95/Ferrous Fum/Folic AC 1 each PO DAILY #30 tablet 12/29/17 03/16/19 Rx [ Vitamin Tablet] - History PMHx: None PSHx: x1 FHx: denies Social: denies PCP: Dr. Weiss - Review of Systems General: reports: fever/chills. denies: night sweats Respiratory: denies: cough, shortness of breath Cardiovascular: denies: palpitation, edema Gastrointestinal: reports: nausea, vomiting, abdominal pain Genitourinary: denies: dysuria Skin: denies: rashes, lesions Musculoskeletal: denies: pain Neurological: denies: numbness, weakness - Vital signs BP: 90/48 HR: 73 RR: 19 Tmax: 100.1 Pox: 100% on RA Wt: 54kg - Physical Exam Constitutional: NAD (appears uncomfortable), awake, alert and oriented HEENT: normocephalic and atraumatic, conjunctiva clear, no scleral icterus, grossly normal vision, grossly normal hearing, MMM Neck: supple, FROM Heart: pulses present, no edema Lungs: no respiratory distress Abdomen: soft, other (TTP in lower abdomen) Musculoskeletal: normal structure, normal tone Skin: good turgor, capillary refill <2 seconds Heme/Lymphatic: no unusual bruising or bleeding, no purpura Psychiatric: normal mood and affect, good judgment and insight FMR H&P: Results - Labs Result Diagrams: 03/21/19 13:50 03/21/19 13:50 Lab results: WBC 6.7 thou/uL (4.8-10.8) 03/21/19 13:50 Hgb 12.9 g/dL (12.0-16.0) 03/21/19 13:50 Hct 37.7 % (36.0-47.0) 03/21/19 13:50 MCV 92.0 fL (78.0-98.0) 03/21/19 13:50 Plt Count 118 thou/uL (130-400) L 03/21/19 13:50 Neutrophils % 86.9 % (42.0-75.0) H 03/21/19 13:50 Sodium 136 mmol/L (136-145) 03/21/19 13:50 Potassium 3.6 mmol/L (3.5-5.1) 03/21/19 13:50 Chloride 106 mmol/L (98-107) 03/21/19 13:50 Carbon Dioxide 20 mmol/L (22-29) L 03/21/19 13:50 BUN 9 mg/dL (7.0-18.7) 03/21/19 13:50 Creatinine 0.64 mg/dL (0.6-1.1) 03/21/19 13:50 Glucose 94 mg/dL (70-105) 03/21/19 13:50 Lactic Acid 0.6 mmol/L (0.5-2.2) 03/21/19 13:50 Calcium 9.1 mg/dL (7.8-10.44) 03/21/19 13:50 Total Bilirubin 0.5 mg/dL (0.2-1.2) 03/21/19 13:50 AST 13 U/L (5-34) 03/21/19 13:50 ALT 9 U/L (8-55) 03/21/19 13:50 Alkaline Phosphatase 70 U/L (40-110) 03/21/19 13:50 Serum Total Protein 6.5 g/dL (6.0-8.3) 03/21/19 13:50 Albumin 3.9 g/dL (3.5-5.0) 03/21/19 13:50 Lipase 6 U/L (8-78) L 03/21/19 14:32 Urine Ketones 20 mg/dL (Negative) A 03/21/19 14:41 Urine Blood 3+ (Negative) A 03/21/19 14:41 Urine Nitrite Negative (Negative) 03/21/19 14:41 Ur Leukocyte Esterase 500 Katelyn/uL (Negative) A 03/21/19 14:41 Urine RBC 11-20 HPF (0-3) A 03/21/19 14:41 Urine WBC 21-50 HPF (0-3) A 03/21/19 14:41 Ur Squamous Epith Cells 7-10 HPF (0-3) A 03/21/19 14:41 Urine Bacteria Rare-Few HPF (None Seen) 03/21/19 14:41 - Radiology Interpretation US - abdomen Status: report reviewed by me Additional comment: pelvic US: markedly thickened, echogenic endometrium FMR H&P: A/P - Problem List (1) Incomplete with infection Current Visit: No Status: Acute Code(s): O03.39 - INCOMPLETE SPONTANEOUS WITH OTHER COMPLICATIONS Assessment and Plan: Will plan to admit obs pt on Devops Developer and take pt to OR for suction D&C -NPO -Consult anesthesia -s/p 1 dose of zosyn, will give pt unasyn post-op (2) Retained products of conception after miscarriage Current Visit: No Status: Acute Code(s): O03.4 - INCOMPLETE SPONTANEOUS WITHOUT COMPLICATION Assessment and Plan: plan for d&c as above - Plan Disposition/LOS: obs on syrup maker cook. LOS likely < 48 hours Addendum - Attending - Attending Attestation Date/Time: 03/21/19 2368 I personally evaluated the patient and discussed the management with Dr. Smith. 33 yo LAF with suspected retained POCs and metriris. Will proceed with D&C and continue IV ABX. I agree with the History, Examination, Assessment and Plan documented above.
[2019-03-21] MEDS ORDERED: Fentanyl 100 MCG/2 ML VIAL ONE (17:37)
[2019-03-21] MEDS ORDERED: HYDROmorphone 0.5 MG/0.5 ML SYRINGE ONE (17:37)
[2019-03-21] MEDS ORDERED: Promethazine HCl 25 MG/ML VIAL ONE (17:37)
[2019-03-21] MEDS ORDERED: Oxytocin 10 UNITS/ML VIAL ONE (18:39)
[2019-03-21] MEDS ORDERED: Misoprostol 100 MCG TAB PO SCH (19:00)
[2019-03-21] MEDS ORDERED: Ampicillin/Sulbactam 3 GM in Sodium Chloride 0.9% 100 ML IVPB SCH (19:00)
[2019-03-21] MEDS: Lactated Ringer's 1,000 ML IV SCH ×2 (20:00→21:29)
[2019-03-21 20:12] VITALS: BMI 22.1
[2019-03-21] MEDS: Ampicillin/Sulbactam 3 GM in Sodium Chloride 0.9% 100 ML IVPB SCH (20:50)
[2019-03-21] MEDS: Misoprostol 100 MCG TAB PO SCH (20:51)
[2019-03-21 21:52] LABS: Hemoglobin 11.6 g/dL (12.0-16.0); Mean Corpuscular HGB CONC 34.3 g/dL (32.0-36.0); Mean Corpuscular Hemoglobin 31.9 pg (27.0-31.0); Mean Platelet Volume 9.6 fL (7.4-10.4); Platelet Count 91 thou/uL (130-400); RBC Distribution Width 11.6 % (11.5-14.5); Red Blood Cell (RBC) Count 3.63 mill/uL (4.20-5.40)
--- NOTE | 2019-03-21 22:21 | OP ---
DATE OF PROCEDURE: 03/21/2019 PREOPERATIVE DIAGNOSES: 1. Suspected retained products of conception. 2. Endometritis. POSTOPERATIVE DIAGNOSES: 1. Suspected retained products of conception. 2. Endometritis. PROCEDURE PERFORMED: Suction curettage of the uterus. INSTALLATIONS INSPECTOR SURGEON: Nessa Smith MD ANESTHESIA: General endotracheal. ESTIMATED BLOOD LOSS: 200 mL. COMPLICATIONS: None. TECHNIQUE IN DETAIL: After good anesthesia was achieved, the patient was prepped and draped in usual sterile fashion in the dorsal lithotomy position using the candy-cane stirrups. Bimanual examination was performed and the uterus was noted to be approximately 10 weeks in size, boggy in nature with bleeding seen from the cervical os. The patient was prepped and draped, and the bladder was drained of clear urine. The anterior aspect of the cervix was grasped with a ring forcep and a weighted speculum was inserted in the vagina. A 10 mm Vacurette was easily placed in the cervix without dilation and moderate amount of products of conception were obtained upon suction curettage. The Pitocin drip was started and a sharp curette was then passed through all remaining quadrants of the uterus and there were no remaining placental fragments. There was minimal bleeding at the conclusion of the case once the Pitocin had been started. All instruments were then removed from the vagina. Sponge and instrument counts were correct. The patient tolerated the procedure well and was taken to the recovery room in good condition. The patient will be observed overnight for further bleeding and she has doses of IV antibiotics ordered. Job ID: [id number]
[2019-03-22] MEDS: Misoprostol 100 MCG TAB PO SCH ×2 (03:22→09:55)
[2019-03-22] MEDS: Ampicillin/Sulbactam 3 GM in Sodium Chloride 0.9% 100 ML IVPB SCH ×2 (03:22→09:53)
[2019-03-22] MEDS: Lactated Ringer's 1,000 ML IV SCH (03:22)
--- NOTE | 2019-03-22 05:13 | PDOC.EVN ---
Event Note - Event Note Event Note: POD1 S/p D&C for retained POCs. Feeling better this AM. VSS P=60s Abdomen is NT. DC this PM post last dose of Unasyn.
[2019-03-22 09:06] VITALS: BP 92/47; TEMP 98.3
[2019-03-22] MEDS ORDERED: FLU VACC QS2019-20(6MOS UP)/PF 60 MCG/0.5 ML SYRINGE IM ONE (22:00)
--- NOTE | 2019-03-23 14:23 | DIS ---
DATE OF ADMISSION: 03/21/2019 DATE OF DISCHARGE: 03/22/2019 ADMITTING ATTENDING: Mason Thayer MD DISCHARGE ATTENDING: Mason Thayer MD. RESIDENT: Nessa Smith MD. CONSULTS: None. PROCEDURES: Dilation and curettage on 03/31/2019. IMAGING: Pelvic ultrasound on 03/21/2019, that showed a very markedly thickened heterogenously echogenic endometrium with persistent endometrial blood and nondiscrete retained products for decidual reaction. PRIMARY DIAGNOSES: 1. Incomplete with endometritis. 2. Retained products of conception after miscarriage. 3. Abnormal uterine bleeding. SECONDARY DIAGNOSES: None. HISTORY OF PRESENT ILLNESS/HOSPITAL COURSE: This is a 33-year-old, G6, P 2-1-3-2, who is 5 days a Cytotec-induced due to DIU. The patient at that time had passed products and was discharged home. The patient returned 5 days later, complaining of abdominal pain, chills, and concern for subjective fever as well as nausea and vomiting. The patient was found on ultrasound to have a concern for retained products and was taken back to the OR by Dr. Thayer and myself for a D and C. The patient tolerated this procedure well and was given Zosyn prior to this procedure and was given 3 doses of Unasyn and 3 doses of Cytotec postop. The patient was able to be discharged home in stable condition the next day. DISPOSITION: Stable. DISCHARGE INSTRUCTIONS: 1. Location: Home. 2. Diet: Regular. 3. Activity: As tolerated. 4. Follow up with PCP in 7 days. Job ID: [id number]
[2019-03-23 14:37] LABS: Chlamydia by PCR Not Detected (NotDetected); GC by PCR Not Detected (NotDetected)
--- NOTE | 2019-03-26 07:53 | PDOC.EVN ---
Event Note - Event Note Event Note: PATH Lab Check: Pathology reveals PETER..no evidence of molar tissue
== END 2019-03-22 12:12 | disposition home or self-care (01) ==
LOC: ERS 13:30 → SDC/OP 17:46 → 3SE 19:20
PROVIDERS: ADMIT Obstetrics & Gynecology; ATTEND Obstetrics & Gynecology
PROC: 10D17ZZ Extraction of Products of Conception, Retained, Via Natural or Artificial Opening (ICD-10-PCS; principal; 2019-03-22)
DX: O03.0 Genital tract and pelvic infection following incomplete spontaneous abortion (principal)
CPT/HCPCS: 36416; 76856; 80053; 81003; 81015; 83605; 83690; 84702; 84703; 85025; 87040; 87077; 87086; 87149; 87186; 87480; 87491; 87510; 87591; 87660; 87804; 88305; 93005; 94760; 96361; 96365; 96366; 96375; G0378; J0295; J1100; J1170; J1885; J2001; J2270; J2405; J2543; J2550; J2590; J2704; J3010; J3490

== ENCOUNTER 2020-04-22 17:53 | Emergency (ER) | payer MEDICAID ==
[2020-04-22 18:33] LABS: #Basophils 0.1 thou/uL (0.0-0.2); #Eosinphils 0.1 thou/uL (0.0-0.7); #Lymphocytes 1.5 thou/uL (1.20-3.40); #Monocytes 0.4 thou/uL (0.11-0.59); #Neutrophils 3.7 thou/uL (1.40-6.50); %Basophils 0.9 % (0.0-1.0); %Eosinophils 1.8 % (0.0-10.0); %Monocytes 6.3 % (0.0-10.0); %Neutrophils 65.1 % (42.0-75.0); Hemoglobin 13.5 g/dL (12.0-16.0); Mean Corpuscular HGB CONC 34.7 g/dL (32.0-36.0); Mean Corpuscular Volume 92.1 fL (78.0-98.0); Mean Platelet Volume 9.5 fL (7.4-10.4); Platelet Count 149 thou/uL (130-400); RBC Distribution Width 11.3 % (11.5-14.5); Red Blood Cell (RBC) Count 4.22 mill/uL (4.20-5.40); White Blood Cell (WBC) Count 5.6 thou/uL (4.8-10.8)
--- NOTE | 2020-04-22 20:19 | ULT ---
Obstetric sonogram first trimester HISTORY: Pelvic pain. Early . FINDINGS: Urinary bladder is decompressed. Uterus measures up to 10.5 cm. Gestational sac within the endometrial cavity contains a small yolk sac. Echogenicity with the appearance of pole measures up to 6 weeks 2 days gestational size. Heart motion not detected. No free fluid in the pelvis. Each ovary has a normal appearance with good color and spectral Doppler flow. IMPRESSION : Single intrauterine gestation. [place]-rump length 6 weeks 2 days age. Heart motion not detected. Pleas e correlate with other clinical information regarding expected gestational age.
[2020-04-22 21:22] LABS: Bacteria/HPF None Seen HPF (None Seen); Bilirubin Negative (Negative); Blood, Urine Trace (Negative); Clarity Extra Turbid (Clear); Glucose, Urine (Dipstick) Normal (Negative); Ketone, Urine Negative (Negative); Leukocyte 25 Leu/uL (Negative); Nitrite Negative (Negative); Protein, Urine (Dipstick) Negative (Neg-Trace); RBC/HPF 0-3 HPF (0-3); Specific Gravity, Urine 1.013 (1.002-1.036); Squamous Epithelial None Seen HPF (0-3); Urobilinogen Normal mg/dL (Less than 2); WBC/HPF 0-3 HPF (0-3)
== END 2020-04-22 21:33 | disposition home or self-care (01) ==
LOC: ERS 17:53
DX: Z34.81 Encounter for supervision of other normal pregnancy, first trimester (principal); Z3A.11 11 weeks gestation of pregnancy
CPT/HCPCS: 36415; 76856; 81003; 81015; 84702; 85025; 86900; 86901; 87086; 94760